=== PATIENT | female | born 1985 | race Caucasian/White ===

== ENCOUNTER 2017-03-31 04:33 | Day surgery (SDC) | payer OTHER ==
[2017-03-31] MEDS ORDERED: METOCLOPRAMIDE HCL ORAL SOLN 10 MG/10 ML UDCUP PO ONE (04:54)
[2017-03-31] MEDS ORDERED: FAMOTIDINE 20 MG TABLET PO ONE (04:54)
[2017-03-31] MEDS ORDERED: LIDOCAINE 2% VISCOUS SOLN 20 ML UDCUP PO ONE (04:54)
[2017-03-31] MEDS ORDERED: MAG HYDROX/AL HYDROX/SIMETH SUSP 30 ML UDCUP PO ONE (04:54)
--- NOTE | 2017-03-31 04:54 | ER Document Report ---
ED GI/ - General TRAVEL OUTSIDE OF THE [place] IN LAST 30 DAYS: No <DOMITILA MOLINA - Last Filed: 03/31/17 07:33> <ALEXIA CHOI - Last Filed: 03/31/17 08:40> - General Chief Complaint: Abdominal Pain Stated Complaint: ABDOMINAL PAIN Time Seen by Provider: 03/31/17 04:46 Notes: Patient is a 32-year-old female presents emergency department complaining of epigastric pain for the past 24 hours. Patient states that she was woken up out of her sleep this evening due to her pain. She describes it as a burning, aching epigastric pain. Describes associated nausea without vomiting. States that it originated yesterday evening when she is trying to get up and had difficulty sleeping due to the pain. She states she took Pepto-Bismol with minimal improvement in her symptoms. She denies any fevers, chills, diarrhea or constipation. States her last menstrual period was last month but she is unsure the date ( DOMITILA MOLINA) - Related Data Allergies/Adverse Reactions: Penicillins Allergy (Intermediate, Verified 03/31/17 07:55) rash, hives Home Medications: Current Home Medications No Home Medications 03/31/17 [History] Past Medical History - Social History Smoking Status: Unknown if Ever Smoked Smoking Education Provided: No Frequency of alcohol use: None Drug Abuse: None Lives with: Family Family History: Reviewed & Not Pertinent <ALEXIA CHOI - Last Filed: 03/31/17 08:40> Review of Systems - Review of Systems Constitutional: No symptoms reported Cardiovascular: No symptoms reported Respiratory: No symptoms reported Gastrointestinal: See HPI -: Yes All other systems reviewed and negative <DOMITILA MOLINA - Last Filed: 03/31/17 07:33> Physical Exam <DOMITILA MOLINA - Last Filed: 03/31/17 07:33> <ALEXIA CHOI - Last Filed: 03/31/17 08:40> - Vital signs Vitals: Temp Pulse Resp BP Pulse Ox 98.5 F 74 16 130/89 H 100 03/31/17 04:38 03/31/17 04:38 03/31/17 04:38 03/31/17 04:38 03/31/17 04:38 - Notes Notes: PHYSICAL EXAM GENERAL: Alert, interacts well. LUNGS: Clear to auscultation bilaterally, no wheezes, rales, or rhonchi. No respiratory distress. HEART: Regular rate and rhythm. No murmurs, gallops, or rubs. ABDOMEN: Soft, nondistended, epigastric pain with positive Pierson's. No guarding, rebound, or rigidity.. Bowel sounds present in all 4 quadrants. EXTREMITIES: Moves all 4 extremities spontaneously. No edema, radial and dorsalis pedis pulses 2/4 bilaterally. No cyanosis. NEUROLOGICAL: Alert and oriented x4. Normal speech. PSYCH: Normal affect, normal mood. SKIN: Warm, dry, normal turgor. No rashes or lesions noted. (DOMITILA MOLINA) Course - Laboratory Result Diagrams: 03/31/17 05:52 03/31/17 05:52 - Diagnostic Test Radiology reviewed: Image reviewed, Reports reviewed <DOMITILA MOLINA - Last Filed: 03/31/17 07:33> - Laboratory Result Diagrams: 03/31/17 05:52 03/31/17 05:52 <ALEXIA CHOI - Last Filed: 03/31/17 08:40> - Re-evaluation Re-evalutation: 03/31/17 05:46 Patient is a 32-year-old female who is hemodynamically stable, no acute distress and afebrile. Patient was given a GI cocktail with some improvement but now pointing to her right upper quadrant complaining of aching pain there. Will send for right upper quadrant ultrasound and send blood work. 03/31/17 07:15 CBC without evidence of leukocytosis or anemia. No evidence of hepatic or pancreatic obstruction. Ultrasound shows questionable sludge versus nonshadowing gallstone. Patient declining any narcotic pain medication. Tolerating p.o. Discussed case with on-call surgeon Dr. Andrea who will come and evaluate the patient in the emergency department otherwise discussed with patient that she can go home today on a low-fat diet with pain medication and can follow-up at her convenience. 03/31/17 07:34 Patient wants to discuss with family if procedure is feasible today. I have signed out to BIBI Choi who will follow up with her around 830am to see if she wants to go through with the procedure. Otherwise will f/u with outpatient surgery. (DOMITILA MOLINA) - Vital Signs Vital signs: Temp Pulse Resp BP Pulse Ox 98.5 F 74 16 130/89 H 100 03/31/17 04:38 03/31/17 04:38 03/31/17 04:38 03/31/17 04:38 03/31/17 04:38 - Laboratory Laboratory results interpreted by me: 03/31/17 05:52 Calcium 10.8 H AST 13 L - Transfer of Care Notes: 03/31/17 08:34 Mrs. Mackenzie per his physician physician assistant I have assumed patient care from Domitila Molina the night provider. Per previous provider patient is trying to decide if she wants to go to surgery today for her gallbladder. 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 Domitila is asked me to wait until 830 and asked patient again and if she wants surgery Dr. corrales will be contacted and she will go directly from ER to there. Patient wants to go home the chart is complete I will just have to discharge her. I was informed by the nurse who has patient that she has elected to go to surgery therefore she is contacted registration for that as well and I am changing the paperwork to indicate surgical admit. (ALEXIA CHOI) Discharge <DOMITILA MOLINA - Last Filed: 03/31/17 07:33> - Discharge Admitting Provider: Dr Andrea Unit Admitted: Surgical Floor <ALEXIA CHOI - Last Filed: 03/31/17 08:40> - Discharge Clinical Impression: Abnormal gall bladder diagnostic imaging Condition: Stable Disposition: SAME DAY SURGERY Additional Instructions: GALLBLADDER DISEASE: Your evaluation shows evidence of gallbladder disease. The gallbladder is a pouch under the liver which stores bile. Stones, infection, or irritation of the gallbladder cause attacks of pain. Certain foods -- fats in particular -- may provoke attacks. The usual treatment for gallbladder disease is surgical removal of the gallbladder -- called a cholecystectomy. You will be referred to a physician qualified to advise you on the best treatment for your problem. Hospitalization is not necessary. Take clear liquids only until you are painfree. After that, you should stay on a low-fat diet, with frequent SMALL meals. Call the doctor or return at once if you develop severe pain, repeated vomiting, fever, or jaundice (a yellow color in the skin and whites of the eyes) . LOW-FAT DIET: The physician has recommended a low-fat diet. This diet is often used for gallbladder or pancreas problems. Your meals should be high-carbohydrate (potato, apples, noodles, breads, vegetables). Eat fish or skinless chicken (boiled or baked rather than fried) for protein. Beans and peas are good sources of fat-free protein. Soups are usually very low-fat. Don't eat anything fried. Avoid red meats. Avoid most dairy products. Skim milk and non-fat yogurt are OK. Most popular cheeses are very high-fat. Don't add butter or sauces -- use lemon or pepper instead. If you like salads, use one of the new "non-fat" dressings. "Fast Food" is "fat food." There is virtually nothing from a typical fast- food restaurant that you can eat. Fish patties and chicken nuggets are almost always deep-fat fried. "Special Sauces" are mostly fat. TORADOL INJECTION: You have been given an injection of ketorolac tromethamine (Toradol). This is an excellent, safe drug for pain control. It also has potent antiinflammatory action. You should have significant pain relief within about one hour. Toradol is not addicting and is non-sedating. It does not interfere with driving or work. Call or return if you develop itching, hives, shortness of breath, or rash. ANTINAUSEA MEDICATION: You have been given a medication to suppress nausea and vomiting. This type of medication can be given as a shot, pill, or suppository. It will usually last for many hours. Pills and shots usually last six to eight hours, suppositories last about 12 hours. For the typical illness, only one or two doses of the medication may be necessary. Mild lightheadedness may occur. This type of medicine can cause drowsiness. Do not drive or operate dangerous machinery while under its influence. Do not mix with alcohol. See your doctor at once if you have muscle spasms or tightness, or uncontrollable motions (particularly of the neck, mouth, or jaw). Persistent vomiting or severe lightheadedness should also be evaluated by the physician. ORAL NARCOTIC MEDICATION: You have been given a prescription for pain control. This medication is a narcotic. It's best taken with food, as nausea can result if taken on an empty stomach. Don't operate machinery or drive within six hours of taking this medication. Do not combine this medicine with alcohol, or with any medication which can cause sedation (such as cold tablets or sleeping pills) unless you get permission from the physician. Narcotics tend to cause constipation. If possible, drink plenty of fluids and eat a diet high in fiber and fruits. Please be aware that prescription narcotics also have the potential for abuse. People become addicted to these medications because of the general sense of wellbeing that they induce. This feeling along with a significant reduction in tension, anxiety, and aggression provides a stimulating seductive quality to these drugs. Once your pain is under control, we encourage you to discard your unused narcotics. FOLLOW-UP CARE: If you have been referred to a physician for follow-up care, call the physician s office for an appointment as you were instructed or within the next two days. If you experience worsening or a significant change in your symptoms, notify the physician immediately or return to the Emergency Department at any time for re-evaluation.
[2017-03-31 06:08] LABS: ABSOLUTE BASOPHILS # (AUTO) 0.1 10^3/uL (0.0-0.2); ABSOLUTE EOSINOPHILS # (AUTO) 0.1 10^3/uL (0.0-0.6); ABSOLUTE LYMPHOCYTES (AUTO) 2.4 10^3/uL (0.5-4.7); ABSOLUTE MONOCYTES (AUTO) 0.6 10^3/uL (0.1-1.4); BASOPHILS % (AUTO) 0.5 % (0-2); EOSINOPHILS % (AUTO) 0.9 % (0-6); HEMATOCRIT 43.4 % (36.0-47.0); HEMOGLOBIN 14.9 g/dL (12.0-15.5); HGB HCT DIFFERENCE 1.3; LYMPHOCYTES % (AUTO) 23.5 % (13-45); MEAN CORPUSCULAR HEMOGLOBIN 30.3 pg (27.0-33.4); MEAN CORPUSCULAR HGB CONC 34.3 g/dL (32.0-36.0); MEAN CORPUSCULAR VOLUME 88 fl (80-97); MONOCYTES % (AUTO) 5.7 % (3-13); RED BLOOD COUNT 4.92 10^6/uL (3.72-5.28); RED CELL DISTRIBUTION WIDTH 13.1 % (11.5-14.0); SEGMENTED NEUTROPHILS % (AUTO) 69.4 % (42-78); WHITE BLOOD COUNT 10.1 10^3/uL (4.0-10.5)
[2017-03-31 06:27] LABS: ALANINE AMINOTRANSFERASE 29 U/L (9-52); ALBUMIN 4.6 g/dL (3.5-5.0); ALKALINE PHOSPHATASE 44 U/L (38-126); ANION GAP 12 (5-19); ASPARTATE AMINO TRANSFERASE 13 U/L (14-36); BILIRUBIN,DIRECT 0.2 mg/dL (0.0-0.4); BILIRUBIN,TOTAL 0.7 mg/dL (0.2-1.3); BLOOD UREA NITROGEN 13 mg/dL (7-20); CALCIUM 10.8 mg/dL (8.4-10.2); CARBON DIOXIDE 25 mmol/L (22-30); CHLORIDE 104 mmol/L (98-107); CREATININE RESULT 0.78 mg/dL (0.52-1.25); GLUCOSE 97 mg/dL (75-110); LIPASE 160.7 U/L (23-300); POTASSIUM 4.5 mmol/L (3.6-5.0); SODIUM 140.6 mmol/L (137-145); TOTAL PROTEIN 7.8 g/dL (6.3-8.2)
--- NOTE | 2017-03-31 06:37 | RADIOLOGY REPORT (SQ) ---
EXAM DESCRIPTION: U/S ABDOMEN LIMITED W/O DOP CLINICAL HISTORY: RUQ and epigastric pain COMPARISON: None. TECHNIQUE: Real-time sonographic images of the right upper abdomen were obtained using a curved multihertz transducer. FINDINGS: The visualized portions of the pancreas are unremarkable. The visualized portions of the aorta and IVC are unremarkable. There is a 3.1 x 2.8 x 2.7 cm hyperechoic focus in the right hepatic lobe. Remainder of the liver has normal echogenicity. The common bile duct measures 0.2 cm Mobile echogenic structure in the gallbladder lumen without shadowing. Negative reported sonographic Pierson sign. Normal wall thickness. The right kidney measures 9.6 cm in length. No hydronephrosis, solid renal mass, or shadowing calculi. IMPRESSION: 1. There is mobile echogenic structure without shadowing in the gallbladder lumen which may represent a sludge ball or nonshadowing gallstone. No gallbladder wall thickening. 2. There is a 3.1 cm hyperechoic nodule in the right hepatic lobe is of indeterminate etiology. Correlation with three-phase hepatic CT for further characterization recommended.
[2017-03-31] MEDS ORDERED: KETOROLAC TROMETHAMINE INJ/PF 30 MG/1 ML SDV IM ONE (06:45)
--- NOTE | 2017-03-31 08:13 | CONSULTATION REPORT E ---
Consultation Report NAME: CHELSEA DOE : 1985 AGE: 32Y DATE: 03/31/2017 TO: MARQUISE EGAN M.D. FROM: Sharda BRICENO, Requesting Physician REASON FOR CONSULTATION: Patient with abdominal pains and sludge in the gallbladder on ultrasound. HISTORY OF PRESENT ILLNESS: This is a 32-year-old female who complained of pains in the epigastric and right upper quadrant areas yesterday morning. Patient had mild nausea. Pains persisted and got worse early this morning around 4:00. Patient drove herself to the ER, and ultrasound of the gallbladder showed sludge. She was given IV Toradol with a little relief. She just had a diarrheic bowel movement with a little relief also. Her white count is normal and her LFTs are normal. PAST SURGICAL HISTORY: History of cleft lip and palate repair. No other surgical procedures. PAST MEDICAL HISTORY: Unremarkable. SOCIAL HISTORY: Denies any smoking, drinking, or recreational drug use. She has 2 children, one a 4-year-old and one 14 months old that she still partially breast feeds. FAMILY HISTORY: Father of [place] at age 65. He had high blood pressure and type 2 diabetes mellitus. Mother is alive and well except for arthritis and joint surgery. Mother is 69 years old. ALLERGIES: PENICILLIN. REVIEW OF SYSTEMS: Denies any headaches or visual or hearing problems. Denies any vomiting, but does have mild nausea. No cough or chest pains. No history of seizure disorder. No dysuria. No easy bruisability or lymphadenopathy. GASTROINTESTINAL: As in HPI. PHYSICAL EXAMINATION: GENERAL: Well-developed, well-nourished 32-year-old female, alert and oriented, complaining of epigastric and right upper quadrant pains. Pains at this time are slightly improved. NECK: Supple. No thyromegaly. LUNGS: Clear. HEART: Regular sinus rhythm. ABDOMEN: Soft with mild epigastric and right upper quadrant tenderness. EXTREMITIES: No edema. IMPRESSION: 1. Cholelithiasis. 2. Biliary colic, rule out acute cholecystitis. PLAN: At this point, patient is still trying to see if the pain will definitely subside. If the pain is still there, she would like to hold off having any operation if the pains all subside in the next couple of hours or so. Arrangements will be made for followup with the surgical clinic if patient definitely improves. Otherwise, if persistent pain, she will need to go to the OR for laparoscopic cholecystectomy. DICTATING PHYSICIAN: MARQUISE EGAN M.D. [id number] PHY#: [id number] ID: [id number] JOB#: [id number] ACCT: [id number] cc:MARQUISE EGAN M.D. >
[2017-03-31] MEDS ORDERED: BUPIVACAINE HCL 0.25% /EPINEPHRINE INJ/PF 30 ML SDV ONE (08:55)
[2017-03-31] MEDS ORDERED: FENTANYL CITRATE INJ/PF 250 MCG/5 ML AMPULE ONE (09:17)
[2017-03-31] MEDS ORDERED: PROPOFOL INJ 200 MG/20 ML VIAL IV ONE (09:18)
[2017-03-31] MEDS ORDERED: ACETAMINOPHEN 100 ML IV ONE (09:18)
[2017-03-31] MEDS ORDERED: FENTANYL CITRATE INJ/PF 100 MCG/2 ML AMPUL ONE (09:18)
[2017-03-31] MEDS ORDERED: MIDAZOLAM 2 MG/2 ML INJ ONE (09:18)
[2017-03-31] MEDS ORDERED: CLINDAMYCIN 600 MG/D5W RTU 600 MG/50 ML RTUPB IV ONE (09:31)
[2017-03-31] MEDS ORDERED: DIPHENHYDRAMINE HCL 50 MG/ML VIAL IV PRN (10:16)
[2017-03-31] MEDS ORDERED: MORPHINE SULFATE 10 MG/ML INJ IV PRN ×2 (10:16→11:43)
[2017-03-31] MEDS ORDERED: PROMETHAZINE HCL INJ 25 MG/1 ML VIAL IV PRN (10:16)
[2017-03-31] MEDS ORDERED: FENTANYL CITRATE INJ/PF 100 MCG/2 ML AMPUL IV PRN ×3 (10:16)
[2017-03-31] MEDS: FENTANYL CITRATE INJ/PF 100 MCG/2 ML AMPUL ONE ×3 (11:05→11:15)
[2017-03-31] MEDS ORDERED: KETOROLAC TROMETHAMINE INJ/PF 30 MG/1 ML SDV ONE (11:38)
[2017-03-31] MEDS ORDERED: OXYCODONE-ACETAMINOPHEN 5-325 MG TABLET PO PRN (11:42)
[2017-03-31] MEDS ORDERED: NORMAL SALINE 1000 ML 1,000 ML IV PRN (11:43)
[2017-03-31] MEDS ORDERED: OXYCODONE-ACETAMINOPHEN 5-325 MG TABLET ONE (11:56)
[2017-03-31] MEDS ORDERED: GLYCOPYRROLATE INJ 0.4 MG/2 ML VIAL ONE (11:59)
[2017-03-31] MEDS ORDERED: VECURONIUM BROMIDE INJ 10 MG VIAL IV ONE (11:59)
[2017-03-31] MEDS ORDERED: ONDANSETRON HCL INJ/PF 4 MG/2 ML SDV ONE (11:59)
[2017-03-31] MEDS ORDERED: DEXAMETHASONE SOD PHOSPHATE INJ 4 MG/1 ML VIAL ONE (11:59)
[2017-03-31] MEDS ORDERED: NEOSTIGMINE METHYLSULFATE 10 MG/10 ML VIAL ONE (11:59)
[2017-03-31] MEDS ORDERED: LIDOCAINE 2% INJ-PF (20 MG/ML) 2 ML AMPUL ONE (11:59)
[2017-03-31] MEDS ORDERED: SUCCINYLCHOLINE CHLORIDE INJ 200 MG/10 ML VIAL ONE (11:59)
[2017-03-31] MEDS ORDERED: KETOROLAC TROMETHAMINE INJ/PF 30 MG/1 ML SDV IV SCH (12:00)
--- NOTE | 2017-03-31 13:13 | OPERATIVE REPORT E ---
Operative Report NAME: CHELSEA DOE : 1985 AGE: 32Y DATE OF SURGERY: 03/31/2017 ROOM: PREOPERATIVE DIAGNOSES: 1. Cholelithiasis. 2. Acute cholecystitis. POSTOPERATIVE DIAGNOSES: 1. Cholelithiasis. 2. Acute cholecystitis. OPERATION: Laparoscopic cholecystectomy. SURGEON: MARQUISE EGAN M.D. ANESTHESIA: General. INDICATION: This is a 32-year-old female with only about 24 hours of right upper quadrant pains. She went to the emergency room where the ultrasound of the gallbladder showed sludge in the gallbladder. She continued to have severe pains with nausea. DESCRIPTION OF PROCEDURE: After adequate general anesthesia, the patient was placed in supine position and the abdomen prepped and draped in the usual sterile fashion. Appropriate timeout was called. Next, an infraumbilical incision was made and the fascia opened and the Temitope trocar inserted and CO2 insufflated up to a pressure of 15 mmHg. Next, 3 other trocars were placed: a 12 mm in the subxiphoid and two 5 mm in the right upper quadrant under direct vision. The gallbladder was then identified and noted to have a slightly thickened wall. There was a little amount of fluid around the liver. The gallbladder area on the cystic duct was then dissected and the cystic duct clipped with hemoclips and divided between the hemoclips. The cystic artery was also identified, clipped with hemoclips and divided with the use of Harmonic michael. The gallbladder was then removed from the liver bed with Harmonic michael. There was a slight amount of edema around the gallbladder during the procedure, indicating likelihood of very early acute appendicitis. The gallbladder was then completely removed from the liver bed and placed in an Endobag and pulled out through the umbilical port. No obvious palpable stones noted in the specimen. However, the ultrasound just showed sludge. At any rate, inspection of the whole abdominal cavity revealed no obvious abnormality. The uterus was slightly enlarged. There was still a small amount of fluid around the pelvis that was suctioned out as well as around the area of the liver. Adequate hemostasis was noted on the operative site. All of the trocars were removed and CO2 allowed to come out of the trocar sites. The fascial defect in the infraumbilical area was then closed with a ilyyar-[id number]-oivyw suture using 0-Vicryl. All the skin incisions were then closed with subcuticular closure using 4-0 Vicryl undyed. Dermabond dressing was used. The patient tolerated the procedure well. Needle, instrument, and sponge counts were all correct. The estimated blood loss was about 5 mL. The patient was then brought to the PACU in satisfactory condition. DICTATING PHYSICIAN: MARQUISE EGAN M.D. [id number] PHY#: [id number] ID: [id number] JOB#: [id number] ACCT: [id number] cc:MARQUISE EGAN M.D. >
[2017-03-31 13:52] VITALS: BP 108/67
== END 2017-03-31 12:50 | disposition home or self-care (01) ==
LOC: ER 04:33 → OROUT 08:45
PROVIDERS: ATTEND Surgery
PROC: 0FT44ZZ Resection of Gallbladder, Percutaneous Endoscopic Approach (ICD-10-PCS; principal; 2017-03-31 09:30)
DX: K81.1 Chronic cholecystitis (principal); Z88.0 Allergy status to penicillin
CPT/HCPCS: 99285; 96372; 36415; 83690; 84703; 85025; 80053; 88304 ×2; 76705; 47562; J2250; J3490 ×4; J1100; J3010 ×2; J1885; J0330; J2405; J2704; J0131; 790